=== PATIENT | male | born 1950 | race Hispanic/Latino ===

== ENCOUNTER 2019-03-26 13:23 | Emergency (ER) | payer OTHER ==
--- NOTE | 2019-03-26 14:58 | RAD ---
Exam:2 views right hip HISTORY: Pain. Injury. Patient fell one week ago. COMPARISON: None FINDINGS: Contour of the femoral head is maintained. Hip joint space is mildly narrowed, inferiorly. No fracture. IMPRESSION: Mild narrowing of the inferior joint space. No fracture. The patient is unable to bear we ight, consider repeat.
--- NOTE | 2019-03-26 15:09 | RAD ---
AP PELVIS: Indication: Indication of fall one week ago with concern for possible right hip fracture. Comparison: None. FINDINGS: There is mild degenerative change of both hips. There is scattered vascular calcification within the adjacent soft tissues. There is a L4-L5 posterior interbody fusion construct. No acute fracture or orozco bluxation is evident. IMPRESSION: No acute osseous abnormality. POS: OFF
--- NOTE | 2019-03-26 15:46 | CT ---
CT Lumbar Spine WO Con History: Fall. Fracture. Comparison: None Findings: Large cyst superior pole right kidney. Large left renal pelvis calcification. Aortic contou r is nonaneurysmal. Posterior spinal fusion hardware at L4-L5 with discectomy cage. There are erosive changes of the endp lates of L4 and L5. Anterolisthesis of L4 over L5 approximately 8 mm. No acute fracture. Circumferential disc osteophyte complex L3/L4 causes moderate bilateral neural for aminal narrowing. Visualized posterior ribs are intact. Transverse processes are intact. Impression: No acute fracture of the lumbar spine.
--- NOTE | 2019-03-26 16:01 | CT ---
CT PELVIS 03/26/19 PROVIDED CLINICAL HISTORY: Right hip pain status post injury. FINDINGS: There is no evidence for fracture or other acute osseous abnormality. Alignment appears anatomic. Lexii nt spaces appear preserved. Lower lumbar spine postoperative and degenerative changes are partially v isualized. Vascular calcifications are seen. The intrapelvic contents appear grossly unremarkable. IMPRESSION: No evidence for fracture. POS: TPC
== END 2019-03-26 16:15 ==
LOC: ERS 13:23 → EEVIPCON 13:23 → ERS 16:15
DX: S70.01XA Contusion of right hip, initial encounter (principal); I10 Essential (primary) hypertension; W18.30XA Fall on same level, unspecified, initial encounter
CPT/HCPCS: 72131; 72170; 72192